=== PATIENT | female | born 1990 | race American Indian/Alaskan Native ===

== ENCOUNTER 2018-10-24 08:28 | Emergency (ER) | payer BC, OTHER ==
[2018-10-24 08:41] VITALS: BP 124/80
[2018-10-24] MEDS ORDERED: FIORICET PO ONE (09:21)
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
[2018-10-24 11:47] LABS: HCG Qualitative,Urine Negative (Negative)
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
== END 2018-10-24 12:59 | disposition home or self-care (01) ==
LOC: ED 08:28
DX: S09.90XA Unspecified injury of head, initial encounter (principal); V89.2XXA Person injured in unspecified motor-vehicle accident, traffic, initial encounter; Y93.89 Activity, other specified; Y92.488 Other paved roadways as the place of occurrence of the external cause; Y99.8 Other external cause status
CPT/HCPCS: 70450; 81025; 99284